=== PATIENT | female | born 1965 | race Two or more races ===

== ENCOUNTER 2018-10-21 08:49 | Emergency (ER) | payer OTHER, BC ==
[2018-10-21 08:58] VITALS: BP 106/64; PULSE 85; TEMP 98.4; BMI 22.1
--- NOTE | 2018-10-21 09:33 | PDOC ---
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 States his pain has persisted primarily on the medial aspect of her right knee but denies any laxity or instability. Has used Tylenol with minimal resolved. Occurred: reports: other (2 days) Severity: reports: mild, moderate Pain Location: reports: lower extremity (right knee ), upper extremity (right shoudler ) Method of Injury: Yes: fall Loss of Consciousness: no loss of consciousness Associated Symptoms (Fall): denies symptoms Past History - Travel Traveled outside of the country in the last 30 days: No Close contact w/someone who was outside of country & ill: No - Past Medical History Allergies/Adverse Reactions: Allergies Allergy/AdvReac Type Severity Reaction Status Date / Time No Known Allergies Allergy Verified 10/21/18 08:54 Home Medications: Ambulatory Orders Naproxen [Naprosyn -] 500 mg PO BID #30 tablet 10/21/18 COPD: No - Surgical History Abdominal Surgery: Yes Appendectomy: Yes - Immunization History Immunization Up to Date: Yes - Suicide/Smoking/Psychosocial Hx Smoking History: Never smoked Have you smoked in the past 12 months: No Hx Alcohol Use: No Drug/Substance Use Hx: No Substance Use Type: None Review of Systems - Review of Systems Able to Perform ROS?: Yes Is the patient limited S[place] proficient: Yes Constitutional: Yes: Symptoms Reported, See HPI, Malaise. No: Fever Respiratory: No: Symptoms reported Musculoskeletal: Yes: Symptoms Reported, See HPI, Joint Pain (right knee ), Muscle Pain Integumentary: No: Symptoms Reported All Other Systems: Reviewed and Negative *Physical Exam - Vital Signs Last Vital Signs Temp Pulse Resp BP Pulse Ox 98.4 F 85 18 106/64 100 10/21/18 08:55 10/21/18 08:55 10/21/18 08:55 10/21/18 08:55 10/21/18 08:55 - Physical Exam General Appearance: Yes: Nourished, Appropriately Dressed, Apparent Distress, Mild Distress HEENT: positive: [place], Normal ENT Inspection, TMs Normal, Pharynx Normal Neck: negative: Tender Musculoskeletal: negative: Normal Inspection (mild tenderness, and mild swelling compared to left knee, patella is mobile without crepitus or step-offs, . Is reproducible along the inferior insertion of the MCL with tenderness on varus maneuver. Patient has mild tenderness posterior fossa without crepitus or step-offs. Range of motion is intact but walks with mild limp. Neurovascular intact to foot. No laxity appreciated.), CVA Tenderness, Decreased Range of Motion, Muscle Spasm, Vertebral Tenderness Extremity: positive: Normal Capillary Refill, Normal Inspection, Normal Range of Motion, Other (right shoulder with mild tenderness at. Has Range Of Motion but Limited to Abduction at 90, past Reproduce His Tenderness and Shoulder. No Changes against Resistance. 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 NML intact, Fully Oriented, Alert, Normal Mood/ Affect, Normal Response, Motor Strength 5/5 Moderate Sedation - Procedure Monitoring Vital Signs: Procedure Monitoring Vital Signs Temperature 98.4 F 10/21/18 08:55 Pulse Rate 85 10/21/18 08:55 Respiratory Rate 18 10/21/18 08:55 Blood Pressure 106/64 10/21/18 08:55 O2 Sat by Pulse Oximetry (%) 100 10/21/18 08:55 Progress Note - Progress Note Progress Note: Right knee and right shoulder sprain, no evidence of bony injury therefore patient agrees will hold x-rays until orthopedist deems necessary *DC/Admit/Observation/Transfer Diagnosis at time of Disposition: Sprain of right knee Qualifiers: Encounter type: initial encounter Right shoulder strain Qualifiers: Encounter type: initial encounter Qualified Code(s): S46.911A - Strain of unspecified muscle, fascia and tendon at shoulder and upper arm level, right arm , initial encounter - Discharge Dispostion Disposition: HOME Condition at time of disposition: Stable Decision to Admit order: No - Prescriptions Prescriptions: Naproxen [Naprosyn -] 500 mg PO BID #30 tablet - Referrals Referrals: Erna Alarcon MD [Primary Care Provider] - Rahat Moyer MD [Staff Physician] - - Patient Instructions Printed Discharge Instructions: DI for Knee Sprain Additional Instructions: Rest, ice to area on and off for 15 minutes 4-6 times a day Avoid heavy lifting or exercise until pain and swelling is resolved or until further directed Keep area highly elevated to reduce swelling Use splints/Geovani wrap as directed Followup with orthopedist in one to 2 days if not improving, if significantly improved may wait one week for followup with orthopedist May use ibuprofen 2-200 mg tablets every 6 hours as needed for pain - Post Discharge Activity
== END 2018-10-21 09:49 | disposition home or self-care (01) ==
LOC: JERFT 08:49
DX: S83.8X1A Sprain of other specified parts of right knee, initial encounter (principal); S46.811A Strain of other muscles, fascia and tendons at shoulder and upper arm level, right arm, initial encounter; W10.8XXA Fall (on) (from) other stairs and steps, initial encounter; Y93.89 Activity, other specified; Y92.218 Other school as the place of occurrence of the external cause; Y99.0 Civilian activity done for income or pay
CPT/HCPCS: 99281-25